=== PATIENT | female | born 1985 | race Caucasian/White ===

== ENCOUNTER 2017-12-18 20:42 | Outpatient (CLI) | payer BC, OTHER ==
[~2017-12-18] VITALS: Ht 160 cm; Wt 91.4 kg
[~2017-12-18 20:42] MED LIST: IBUP-1222 PO; OXYC-302 PO; PREN1TAB60 PO
[2017-12-18 21:31] VITALS: BP 116/72
[2017-12-18 21:33] LABS: AMNISURE NEGATIVE (NEGATIVE)
== END 2017-12-18 22:25 | disposition home or self-care (01) ==
LOC: LDOP 20:42
PROVIDERS: ATTEND Obstetrics & Gynecology
DX: O42.92 Full-term premature rupture of membranes, unspecified as to length of time between rupture and onset of labor (principal); O62.9 Abnormality of forces of labor, unspecified; O26.893 Other specified pregnancy related conditions, third trimester; R10.9 Unspecified abdominal pain; Z3A.39 39 weeks gestation of pregnancy
CPT/HCPCS: 59025; 84112; 99211; G0463

== ENCOUNTER 2017-12-20 22:44 | Outpatient (CLI) | payer OTHER ==
[~2017-12-20] VITALS: Ht 160 cm; Wt 93.0 kg
[2017-12-23] MEDS ORDERED: DOCU-131 PO (15:47)
[2017-12-23] MEDS ORDERED: IBUP-1222 PO (15:47)
[2017-12-23] MEDS ORDERED: HYDR-3240 PO (15:48)
== END 2017-12-21 03:05 | disposition home or self-care (01) ==
LOC: LDOP 22:44
PROVIDERS: ATTEND Obstetrics & Gynecology
DX: O26.893 Other specified pregnancy related conditions, third trimester (principal); R10.9 Unspecified abdominal pain; Z3A.40 40 weeks gestation of pregnancy
CPT/HCPCS: 59025; 99211; G0463

== ENCOUNTER 2020-01-11 05:57 | Inpatient (IN) | payer OTHER ==
[~2020-01-11] VITALS: Ht 161.3 cm; Wt 89.0 kg
[~2020-01-11 05:57] MED LIST changes: +DOCU-131 PO; +HYDR-3240 PO
[2020-01-11] MEDS ORDERED: OXYTOCIN 30U/ 0.9% NaCL 500ML 500 ML IV ONE (07:14)
[2020-01-11] MEDS ORDERED: OXYTOCIN 30U/ 0.9% NaCL 500ML 500 ML IV PRN (07:14)
[2020-01-11] MEDS ORDERED: ONDANSETRON 2MG/ML, 2ML IVPush PRN (07:30)
[2020-01-11] MEDS ORDERED: TERBUTALINE 1 MG/ML, 1ML SQ PRN (07:30)
[2020-01-11] MEDS ORDERED: FENTANYL PF 100 MCG/2ML IVPush PRN (07:30)
[2020-01-11] MEDS ORDERED: CALCIUM CARBONATE 500 MG TAB.CHEW PO PRN (07:30)
[2020-01-11] MEDS ORDERED: FENTANYL PF 100 MCG/2ML IV PRN (07:30)
[2020-01-11] MEDS ORDERED: TERBUTALINE 1 MG/ML, 1ML IVPush PRN (07:30)
[2020-01-11] MEDS: LACTATED RINGERS 1,000 ML IV SCH ×3 (07:33→23:14)
[2020-01-11 07:40] LABS: BASOPHILS # (AUTO) 0.04 x10^3/uL (0-0.1); BASOPHILS % (AUTO) 0 % (0-1); EOSINOPHILS % (AUTO) 0 % (1-7); LYMPHOCYTES # (AUTO) 2.67 x10^3/uL (1-3.4); LYMPHOCYTES % (AUTO) 24 % (22-44); MD NO; MEAN CORPUSCULAR HEMOGLOBIN 26.3 pg (27.0-34.8); MEAN CORPUSCULAR HGB CONC 32.5 g/dL (32.4-35.8); MEAN CORPUSCULAR VOLUME 80.9 fL (80-100); MEAN PLATELET VOLUME 7.6 fL (7.4-10.4); MONOCYTES # (AUTO) 0.61 x10^3/uL (0.2-0.8); MONOCYTES % (AUTO) 6 % (2-9); NEUTROPHILS # (AUTO) 7.67 x10^3/uL (1.8-6.8); NEUTROPHILS % (AUTO) 70 % (42-75); PLATELET COUNT 380 x10^3/uL (130-400); RED BLOOD COUNT 4.12 x10^6/uL (3.82-5.3); RED CELL DISTRIBUTION WIDTH 15.7 % (9.6-15.2)
[2020-01-11] MEDS ORDERED: LIDOCAINE 1%, 20ML ONE (07:41)
[2020-01-11] MEDS ORDERED: NEWBORN KIT ONE (07:41)
[2020-01-11] MEDS ORDERED: MISOPROSTOL 200 MCG TABLET ONE (07:42)
[2020-01-11] MEDS ORDERED: OXYTOCIN 30U/ 0.9% NaCL 500ML 500 ML ONE ×2 (07:42→20:41)
[2020-01-11 07:57] VITALS: BP 104/54
[2020-01-11] MEDS ORDERED: FENTANYL/BUPIV./NS/PF 250 ML EPIDCONT SCH ×2 (12:55→14:23)
[2020-01-11] MEDS ORDERED: FENTANYL PF 500 MCG, BUPIVACAINE/PF 0.5%, 30ML 62.5 ML in SODIUM CHLORIDE 0.9% 177.5 ML EPIDCONT SCH (13:00)
[2020-01-11] MEDS ORDERED: LACTATED RINGERS 1,000 ML IVBOLUS PRN ×2 (13:00→14:30)
[2020-01-11] MEDS ORDERED: LIDOCAINE/PF 1.5%-EPI 1:200K, 30ML ONE (13:50)
[2020-01-11] MEDS ORDERED: BUPIVACAINE 0.25% ONE (13:50)
[2020-01-11] MEDS ORDERED: LACTATED RINGERS 1,000 ML IV SCH (14:23)
[2020-01-11] MEDS ORDERED: NALOXONE 0.4 MG/ML, 1ML IVPush PRN (14:30)
[2020-01-11] MEDS ORDERED: EPHEDRINE 50 MG/ML, 1ML IVPush PRN (14:30)
[2020-01-11] MEDS: D5%-LACTATED RINGERS 1,000 ML IV SCH ×3 (15:14→23:14)
[2020-01-11] MEDS: OXYTOCIN 30U/ 0.9% NaCL 500ML 500 ML IV SCH (20:03)
[2020-01-11] MEDS ORDERED: DIPH,PERTUSS(ACELL),TET VAC/PF NC IM-VACC PRN (20:30)
[2020-01-11] MEDS ORDERED: MISOPROSTOL 200 MCG TABLET PR PRN (20:30)
[2020-01-11] MEDS ORDERED: ONDANSETRON 2MG/ML, 2ML IV PRN (20:30)
[2020-01-11] MEDS ORDERED: DOCUSATE 100 MG CAPSULE PO PRN (20:30)
[2020-01-11] MEDS ORDERED: MAGNESIUM HYDROXIDE 8%, 30ML UDC PO PRN (20:30)
[2020-01-11] MEDS ORDERED: OXYcodone/APAP 5/325MG TABLET PO PRN (20:30)
[2020-01-11] MEDS ORDERED: ACETAMINOPHEN 325 MG TABLET PO PRN ×2 (20:30)
[2020-01-11] MEDS ORDERED: SIMETHICONE 80 MG CHEW TAB PO PRN (20:30)
[2020-01-11] MEDS ORDERED: RHOGAM FROM BLOOD BANK 1 NOTE EA IM/IV ONE (20:30)
[2020-01-11] MEDS ORDERED: IBUPROFEN 600 MG TABLET ONE (20:41)
[2020-01-11] MEDS: IBUPROFEN 600 MG TABLET PO PRN (20:46)
[2020-01-11 21:50] VITALS: BP 107/68
[2020-01-12] VITALS: BP 104/66
[2020-01-12 03:20] LABS: BASOPHILS # (AUTO) 0.03 x10^3/uL (0-0.1); BASOPHILS % (AUTO) 0 % (0-1); EOSINOPHILS # (AUTO) 0.06 x10^3/uL (0-0.4); EOSINOPHILS % (AUTO) 1 % (1-7); LYMPHOCYTES # (AUTO) 1.91 x10^3/uL (1-3.4); LYMPHOCYTES % (AUTO) 14 % (22-44); MD NO; MEAN CORPUSCULAR HEMOGLOBIN 26.2 pg (27.0-34.8); MEAN CORPUSCULAR HGB CONC 32.5 g/dL (32.4-35.8); MEAN CORPUSCULAR VOLUME 80.5 fL (80-100); MEAN PLATELET VOLUME 7.9 fL (7.4-10.4); MONOCYTES # (AUTO) 0.62 x10^3/uL (0.2-0.8); MONOCYTES % (AUTO) 5 % (2-9); NEUTROPHILS # (AUTO) 11.07 x10^3/uL (1.8-6.8); NEUTROPHILS % (AUTO) 81 % (42-75); PLATELET COUNT 325 x10^3/uL (130-400); RED BLOOD COUNT 3.88 x10^6/uL (3.82-5.3); RED CELL DISTRIBUTION WIDTH 15.8 % (9.6-15.2)
[2020-01-12] MEDS: IBUPROFEN 600 MG TABLET PO PRN ×3 (03:24→15:01)
[2020-01-12 04:00] VITALS: BP 109/63
[2020-01-12] MEDS: OXYTOCIN 30U/ 0.9% NaCL 500ML 500 ML IV SCH ×2 (06:03→16:03)
[2020-01-12] MEDS: D5%-LACTATED RINGERS 1,000 ML IV SCH ×2 (07:14→15:14)
[2020-01-12] MEDS: LACTATED RINGERS 1,000 ML IV SCH ×2 (07:14→15:14)
[2020-01-12 08:30] VITALS: BP 109/73
[2020-01-12] MEDS: OXYcodone/APAP 5/325MG TABLET PO PRN ×2 (08:55→15:01)
[2020-01-12] MEDS ORDERED: PRENATAL VIT/IRON/FA 1 EACH TABLET PO SCH (09:00)
[2020-01-12 14:28] VITALS: BP 101/66
[2020-01-12] MEDS ORDERED: IBUP-1222 PO (16:58)
== END 2020-01-12 18:47 | disposition home or self-care (01) | DRG 807 ==
LOC: LDIP 05:57 → 2NW 21:41
PROVIDERS: ADMIT Obstetrics & Gynecology; ATTEND Obstetrics & Gynecology
PROC: 10E0XZZ Delivery of Products of Conception, External Approach (ICD-10-PCS; principal; 2020-01-11)
PROC: 0KQM0ZZ Repair Perineum Muscle, Open Approach (ICD-10-PCS; 2020-01-11)
PROC: 3E0R3BZ Introduction of Anesthetic Agent into Spinal Canal, Percutaneous Approach (ICD-10-PCS; 2020-01-11)
PROC: 00HU33Z Insertion of Infusion Device into Spinal Canal, Percutaneous Approach (ICD-10-PCS; 2020-01-11)
PROC: 10H07YZ Insertion of Other Device into Products of Conception, Via Natural or Artificial Opening (ICD-10-PCS; 2020-01-11)
PROC: 3E033VJ Introduction of Other Hormone into Peripheral Vein, Percutaneous Approach (ICD-10-PCS; 2020-01-11)
DX: O99.354 Diseases of the nervous system complicating childbirth (principal); Z37.0 Single live birth; O70.1 Second degree perineal laceration during delivery; Z3A.39 39 weeks gestation of pregnancy; Z82.3 Family history of stroke; Z82.49 Family history of ischemic heart disease and other diseases of the circulatory system; Z80.3 Family history of malignant neoplasm of breast; G43.909 Migraine, unspecified, not intractable, without status migrainosus
CPT/HCPCS: 36415; J3490; J7121; S0020; 82803; 85025; 86592; 86850; 86900; G0378; J3010; J2590; J7050; J7120